=== PATIENT | male | born 1975 | race African-American/Black ===

== ENCOUNTER 2016-08-30 11:48 | Emergency (ER) | payer BC ==
[~2016-08-30] VITALS: Ht 195.6 cm; Wt 156.6 kg
[~2016-08-30 11:48] MED LIST: FLEXERIL10 MG PO; FLEXERIL5 MG PO; HYDROCHLOROTHIA25 MG PO; LORTAB 5-325 M1 EACH PO; MOTRIN600 MG PO; NORCO 5/3251 TABLET PO; NORVASC10 MG PO; PERCOCET 5/31 TABLET PO; PHENTERMINE HCL15 MG PO; PREDNISONE10 MG PO; XANAX0.25 MG PO
[2016-08-30 13:25] VITALS: BP 146/107
== END 2016-08-30 13:26 | disposition home or self-care (01) ==
LOC: EME 11:48
DX: J35.8 Other chronic diseases of tonsils and adenoids (principal); I10 Essential (primary) hypertension; F17.200 Nicotine dependence, unspecified, uncomplicated
CPT/HCPCS: 99281; 99283

== ENCOUNTER 2017-08-13 13:24 | Emergency (ER) | payer OTHER, BC ==
[~2017-08-13] VITALS: Ht 195.6 cm; Wt 154.1 kg
[2017-08-13] MEDS ORDERED: NAPROSYN500 MG PO (14:53)
[2017-08-13] MEDS ORDERED: FLEXERIL10 MG PO (14:53)
[2017-08-13 15:28] VITALS: BP 138/91
== END 2017-08-13 15:29 | disposition home or self-care (01) ==
LOC: EME 13:24
DX: S16.1XXA Strain of muscle, fascia and tendon at neck level, initial encounter (principal); M54.5 Low back pain; V49.40XA Driver injured in collision with unspecified motor vehicles in traffic accident, initial encounter; Y92.410 Unspecified street and highway as the place of occurrence of the external cause; I10 Essential (primary) hypertension; Z87.891 Personal history of nicotine dependence
CPT/HCPCS: 99281; 99284

== ENCOUNTER 2017-12-23 16:19 | Observation (INO) | payer BC ==
[~2017-12-23] VITALS: Ht 195.6 cm; Wt 158.7 kg
[~2017-12-23 16:19] MED LIST changes: +NAPROSYN500 MG PO
[2017-12-23 16:54] LABS: HEMATOCRIT 44.4 % (38.0-50.0); HEMOGLOBIN 14.7 G/DL (12.5-16.6); MCH 29.8 PG (29.0-34.0); MCHC 33.1 G/DL (30.0-36.0); MCV 89.9 FL (86-99); PLATELET COUNT 229 K/uL (156-360); RBC DIS.WIDTH-CV 12.8 % (11.8-14.6); RBC DIS.WIDTH-SD 42.1 % (39-53); RED BLOOD COUNT 4.94 M/uL (4.00-5.50); WHITE BLOOD COUNT 4.4 K/uL (4.1-10.2)
[2017-12-23 17:05] LABS: ALBUMIN 4.2 g/dL (3.2-4.8); CHLORIDE 104 mEq/L (99-109); POTASSIUM 4.5 mEq/L (3.7-5.4); SODIUM 141 mEq/L (136-147)
[2017-12-23 17:06] LABS: D-DIMER ELISA < 150.00 ng/mLDDU (<230)
[2017-12-23 17:07] LABS: GLUCOSE 86 mg/dL (70-99)
[2017-12-23 17:09] LABS: TOTAL BILIRUBIN 0.3 mg/dL (0.0-1.0)
[2017-12-23 17:11] LABS: ALKALINE PHOSPHATASE 66 IU/L (3-129); CREATININE 1.6 mg/dL (0.6-1.3); GFR ESTIMATE (CALCULATED) > 59 mL/min/ (58.99-99999)
[2017-12-23 17:12] LABS: UREA NITROGEN (BUN) 16 mg/dL (9-23)
[2017-12-23 17:13] LABS: AST (GOT) 29 IU/L (2-34)
[2017-12-23 17:14] LABS: ALT (GPT) 44 IU/L (3-49); LIPASE 22 U/L (1.0-51.0)
[2017-12-23 17:16] LABS: TROP-I INTERPRETATION NEGATIVE; TROPONIN-I < 0.01 ng/mL (0.0-0.30)
[2017-12-23] MEDS ORDERED: ATIVAN1 MG PO (17:50)
[2017-12-23] MEDS ORDERED: FLEXERIL10 MG PO (17:52)
[2017-12-23] MEDS ORDERED: NAPROSYN500 MG PO (17:54)
[2017-12-23] MEDS ORDERED: DESYREL100 MG PO (17:55)
[2017-12-23] MEDS ORDERED: WELLBUTRIN XL300 MG PO (17:56)
[2017-12-23] MEDS ORDERED: ABILIFY5 MG PO (17:57)
[2017-12-23] MEDS ORDERED: CIALIS20 MG PO (17:57)
[2017-12-23] MEDS ORDERED: ADVIL,NUPRIN,M200 MG PO (17:58)
[2017-12-23 19:45] VITALS: BP 134/84
[2017-12-23 23:14] LABS: TROP-I INTERPRETATION NEGATIVE; TROPONIN-I < 0.01 ng/mL (0.0-0.30)
[2017-12-24 00:02] VITALS: BP 120/71
[2017-12-24 04:10] VITALS: BP 115/67
[2017-12-24 05:27] LABS: TROP-I INTERPRETATION NEGATIVE; TROPONIN-I < 0.01 ng/mL (0.0-0.30)
[2017-12-24 07:26] VITALS: BP 106/55
[2017-12-24] MEDS ORDERED: METOPROLOL TART25 MG PO (12:18)
[2017-12-24 12:37] VITALS: BP 115/65
== END 2017-12-24 13:30 | disposition home or self-care (01) ==
LOC: EME 16:19 → EDOF 17:55 → 4SOUTH 17:55 → ENRESERV 17:56 → 4SOUTH 19:37 → ENPENDDIS 12-24 → 4SOUTH 12-24 13:30
PROVIDERS: Internal Medicine; Nurse Practitioner Family
DX: R00.2 Palpitations (principal); I10 Essential (primary) hypertension; G47.30 Sleep apnea, unspecified; Z87.19 Personal history of other diseases of the digestive system; Z88.6 Allergy status to analgesic agent; Z91.013 Allergy to seafood; Z88.8 Allergy status to other drugs, medicaments and biological substances; F17.290 Nicotine dependence, other tobacco product, uncomplicated; Z82.49 Family history of ischemic heart disease and other diseases of the circulatory system
CPT/HCPCS: 71046; 80053; 81003; 83690; 84484; 85027; 85379; 93005; 99281; 99285; G0378